=== PATIENT | male | born 1990 | race Caucasian/White ===

== ENCOUNTER 2018-12-27 16:15 | Emergency (ER) | payer OTHER ==
[~2018-12-27] VITALS: Ht 172.7 cm; Wt 77.1 kg
--- NOTE | 2018-12-27 16:28 | NUR ---
SENT BY DR. TO C/O RECTAL BLEEDING S/P HEMORRHOIDECTOMY 12/23/18, TO ER BED 11, HOOKED TO MONITOR, CHANGED TO GOWN, PROVIDED W WARM BLANKET, AWAITING MD WILKINS.
--- NOTE | 2018-12-27 16:31 | NUR ---
DR HAWKINS AT BEDSIDE
--- NOTE | 2018-12-27 16:41 | NUR ---
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
[2018-12-27 16:51] LABS: BASOPHILS # (AUTO) 0.1 /CMM (0.0-0.2); BASOPHILS % (AUTO) 0.5 % (0.0-2.0); EOSINOPHILS % (AUTO) 5.1 % (0.0-6.0); HEMATOCRIT 41 % (39-51); LYMPHOCYTES % (AUTO) 19.1 % (20.0-44.0); MEAN CORPUSCULAR HGB CONC 34 g/dl (31.0-36.0); MEAN CORPUSCULAR VOLUME 86 fL (80-96); MONOCYTES # (AUTO) 0.9 /CMM (0.1-1.30); MONOCYTES % (AUTO) 8.4 % (2.0-12.0); NEUTROPHILS # (AUTO) 7.1 /CMM (1.8-8.9); NEUTROPHILS % (AUTO) 66.9 % (43.0-81.0); PLATELET COUNT (AUTO) 206 /CMM (150-450); RED BLOOD CELL COUNT(AUTO) 4.76 MIL/uL (4.5-6.0); WHITE BLOOD COUNT (AUTO) 10.5 K/uL (4.3-11.0)
[2018-12-27 16:57] LABS: CALCIUM, SERUM 9.6 mg/dL (8.5-10.1); CREATININE 0.9 mg/dL (0.6-1.3); POTASSIUM 4.4 mmol/L (3.5-5.1)
[2018-12-27] MEDS ORDERED: IV NS 0.9% 1,000 ML BAG IV ONE (17:00)
--- NOTE | 2018-12-27 17:15 | NUR ---
DR Nicolasa TO AT BEDSIDE
--- NOTE | 2018-12-27 17:21 | NUR ---
BLADDER SCAN DONE, 188ML, MADE DR HAWKINS AWARE
[2018-12-27] MEDS ORDERED: IBUP-1957 PO (17:36)
[2018-12-27] MEDS ORDERED: ACET-73 PO (17:36)
[2018-12-27] MEDS ORDERED: SENN-168 PO (17:36)
[2018-12-27 17:38] VITALS: BP 106/62
[2018-12-27] MEDS ORDERED: SIME125T3 PO (17:38)
[2018-12-27] MEDS ORDERED: PSYL1PAC8 PO (17:38)
--- NOTE | 2018-12-27 17:42 | NUR ---
PT DECIDED NOT TO PROCEED WITH SURGERY. PER PATIENT, WANT TO DELAY SURGERY FOR [address] HAWKINS AWARE. MADE DR TO AWARE.
--- NOTE | 2018-12-27 18:03 | NUR ---
Patient does not wish to proceed with medical care recommended by Dr. HAWKINS. Patient given information related to possible complications, up to and including , which could occur as a result of leaving the hospital at this time. Patient verbalizes understanding of risks involved due to leaving against medical advice. Patient has signed AMA form.
== END 2018-12-27 18:05 | disposition left against medical advice (07) ==
LOC: ER 16:17
DX: K91.840 Postprocedural hemorrhage of a digestive system organ or structure following a digestive system procedure (principal); Z98.890 Other specified postprocedural states
CPT/HCPCS: 36415; 80048; 85025; 85730; 99283; J7030